=== PATIENT | male | born 1985 | race Asian ===

== ENCOUNTER 2019-06-24 18:18 | Emergency (ER) | payer OTHER ==
[~2019-06-24] VITALS: Ht 170.2 cm; Wt 81.7 kg
[2019-06-24 19:30] LABS: URINE BILIRUBIN NEGATIVE (Negative); URINE BLOOD NEGATIVE (Negative); URINE CLARITY CLEAR; URINE COLOR YELLOW; URINE GLUCOSE-RANDOM* NEGATIVE (Negative); URINE KETONES NEGATIVE (Negative); URINE LEUKOCYTES-REFLEX NEGATIVE (Negative); URINE NITRITE-REFLEX NEGATIVE (Negative); URINE PROTEIN (DIPSTICK) NEGATIVE (Negative); URINE SPECIFIC GRAVITY 1.025 (1.005-1.035); URINE UROBILINOGEN 0.2 E.U./dl (0.2-1.0)
[2019-06-24 19:40] LABS: AMP/METHAMP POSITIVE (Negative); BARBITURATES Negative (Negative); BENZODIAZEPINES Negative (Negative); COCAINE Negative (Negative); METHADONE Negative (Negative); OPIATES Negative (Negative); PCP Negative (Negative)
[2019-06-24 19:51] LABS: ABSOLUTE NEUTROPHILS 9.9 thou/uL (1.4-8.2); BASOPHILS 0.8 % (0.0-2.0); EOSINOPHILS 1.6 % (0.0-3.0); HEMATOCRIT 46.7 % (42.0-52.0); HEMOGLOBIN 15.9 gm/dL (14.0-18.0); LYMPHOCYTES 18.4 % (24.0-44.0); MCH 29.4 pg (26.0-34.0); MCHC 34.1 g/dL (28.0-37.0); MCV 86.2 fL (80.0-100.0); MONOCYTES 6.5 % (1.0-8.0); PLATELET COUNT 273 thou/uL (150-400); POLYS 72.7 % (36.0-66.0); RBC 5.42 mil/uL (4.50-6.00); RDW 13.2 % (10.5-14.5); WBC 13.6 thou/uL (4.0-11.0)
[2019-06-24 20:09] LABS: ANION GAP 9 mmol/L (7-16); BUN 11 mg/dL (7-18); CALCIUM 9.2 mg/dL (8.5-10.1); CHLORIDE 101 mmol/L (98-107); CO2 28 mmol/L (21-32); GLUCOSE 85 mg/dL (74-106); POTASSIUM 3.6 mmol/L (3.5-5.1); SODIUM 138 mmol/L (136-145); TROPONIN-I <0.06 ng/mL (<0.06)
[2019-06-24 21:05] VITALS: BP 144/91
--- NOTE | 2019-06-26 11:40 | EKG ---
[place] [address] [facility] [place] [address] ELECTROCARDIOGRAM REPORT Name: SAADIATSERINGLibby Room #: [facility] Deb#: [id number] Admission: 06/24/19 Attend Phys: Discharge: 06/24/19 Date of : 85 Report #: [id number] THIS REPORT FOR: //name// [facility] ED Test Date: 2019-06-24 Test Time: 18:27:43 Pat Name: MARY CARMEN ZEE Department: Room: Gender: Counter Stitcher: ALFREDO : 1985 Requested By: Curt Robertson Order Number: [id number] MD: Gregorio Sterling Measurements Intervals [place] Rate: 88 P: 70 [place]: 138 QRS: 64 QRSD: 110 T: 6 QT: 353 QTc: 427 Interpretive Statements Sinus rhythm RSR' in V1 or V2, right VCD or RVH No previous ECG available for comparison Electronically Signed On 06-26-2019 11:40:28 CDT by Gregorio Sterling [email or web address] <ELECTRONICALLY SIGNED> By: Gregorio Sterling MD 06/26/19 1140 1827 26 Gregorio Sterling MD /RAMÍREZ
== END 2019-06-24 21:07 | disposition home or self-care (01) ==
LOC: ER 18:18
PROVIDERS: Nurse Practitioner
DX: F15.10 Other stimulant abuse, uncomplicated (principal); R06.00 Dyspnea, unspecified